=== PATIENT | female | born 1940 | race Caucasian/White ===

== ENCOUNTER 2017-10-16 14:07 | Emergency (ER) | payer MEDICARE ==
[~2017-10-16] VITALS: Ht 152.4 cm; Wt 59.0 kg
[2017-10-16] MEDS ORDERED: ATOR10TA84 PO (14:28)
[2017-10-16] MEDS ORDERED: AMLO-511 PO (14:28)
[2017-10-16] MEDS ORDERED: QUET25TA PO (14:28)
[2017-10-16] MEDS ORDERED: PHEN32.43 PO (14:28)
[2017-10-16 14:38] LABS: BASOPHILS % (AUTO) 2.5 % (0.0-2.0); EOSINOPHILS % (AUTO) 7.3 % (1.0-6.0); HEMATOCRIT 27.2 % (36-46); HEMOGLOBIN 8.9 g/dL (12.0-16.0); LYMPHOCYTES # (AUTO) 1.1 K/uL (1.0-4.8); LYMPHOCYTES % (AUTO) 21.5 % (22.0-44.0); MEAN CORPUSCULAR HGB CONC 32.7 G/dL (31.0-37.0); MEAN CORPUSCULAR VOLUME 86 fL (80-100); MONOCYTES # (AUTO) 0.5 K/uL (0.1-1.0); NEUTROPHILS # (AUTO) 3.1 K/uL (1.8-7.7); NEUTROPHILS % (AUTO) 59.7 % (40.0-70.0); PLATELET COUNT (AUTO) 504 K/uL (150-450); RED BLOOD CELL COUNT(AUTO) 3.18 MIL/uL (4.00-5.20); RED CELL DISTRIBUTION WIDTH 20.6 % (11.5-14.5)
[2017-10-16 14:46] LABS: ANION GAP 10 mmol/L (8-16); CALCIUM, TOTAL 8.8 mg/dL (8.8-10.5); CARBON DIOXIDE 31 mmol/L (22-29); CHLORIDE 105 mmol/L (98-107); CREATININE 1.64 mg/dL (0.60-1.30); GLOMERULAR FILTR. RATE CALC 30 mL/min (>60); GLUCOSE,RANDOM 90 mg/dL (70-110); POTASSIUM 3.8 mmol/L (3.5-5.1); SODIUM SERUM 146 mmol/L (136-145); UREA NITROGEN, BLOOD 21 mg/dL (7-18)
[2017-10-16 14:57] LABS: ALBUMIN 3.2 g/dL (3.4-5.0); BILIRUBIN,TOTAL 0.2 mg/dL (0.1-1.0); TOTAL PROTEIN, SERUM 7.1 g/dL (6.4-8.2)
[2017-10-16 15:10] LABS: ALANINE AMINOTRANSFERASE 10 U/L (12-78); ALKALINE PHOSPHATASE 119 U/L (46-116); ASPARTATE AMINOTRANSFERASE 15 U/L (15-37)
[2017-10-16 16:17] VITALS: BP 159/71
[2017-10-16 17:10] LABS: AMPHET/METH SCREEN,URINE NEGATIVE (NEGATIVE); BARBITURATE SCREEN, URINE POSITIVE (NEGATIVE); BENZODIAZEPINES SCREEN,URINE NEGATIVE (NEGATIVE); CANNABINOID SCREEN,URINE NEGATIVE (NEGATIVE); COCAINE SCREEN,URINE NEGATIVE (NEGATIVE); METHADONE SCREEN, URINE NEGATIVE (NEGATIVE); OPIATE SCREEN,URINE NEGATIVE (NEGATIVE); PHENCYCLIDINE SCREEN,URINE NEGATIVE (NEGATIVE)
== END 2017-10-16 17:24 | disposition home or self-care (01) ==
LOC: EMS 14:09
DX: F43.22 Adjustment disorder with anxiety (principal); E78.00 Pure hypercholesterolemia, unspecified; I10 Essential (primary) hypertension; F17.210 Nicotine dependence, cigarettes, uncomplicated; Z91.14 Patient's other noncompliance with medication regimen; Z88.2 Allergy status to sulfonamides
CPT/HCPCS: 36415; 80053; 80307; 85025; 99285; G0480